=== PATIENT | male | born 1990 | race Caucasian/White ===

== ENCOUNTER 2018-03-18 21:06 | Emergency (ER) | payer BC ==
[~2018-03-18] VITALS: Ht 157.5 cm; Wt 59.0 kg
[~2018-03-18 21:06] MED LIST: ACET325T12 PO; DAPA5TAB PO; EMPA25TA PO; INSU100C5 SQ; INSU100V13 SQ; INSU100V14 SQ; INSU100V8 SQ; INSU300I SQ; LANC-426 MC; LISI10TA2 PO; ONDA4TAB12 PO; SIMV20TA3 PO; VARE1TAB21 PO; [UNRECOGNIZED DRUG - CODE] TP; [UNRECOGNIZED DRUG - OTHER]; [UNRECOGNIZED DRUG - OTHER] SUBCUT
[2018-03-18] MEDS ORDERED: NAPROXEN PO STA (21:16)
[2018-03-18] MEDS ORDERED: AMOXIL PO STA (21:16)
[2018-03-18] MEDS ORDERED: AMOXIL PO ONE (21:18)
[2018-03-18] MEDS ORDERED: NAPROXEN PO ONE (21:18)
--- NOTE | 2018-03-18 21:21 | ER.PDOC ---
General Chief Complaint: Toothache Stated Complaint: TOOTHACHE Time seen by MD: 21:18 Source: patient Exam Limitations: no limitations History of Present Illness Initial Comments 28 year old white male with chronic fractured tooth with increasing pain tonight. No fever, no chills. Timing/Duration: gradual Context: fractured tooth Severity: severe Worsen By: cold Prior symptoms/Treatment: Similar symptoms previous Allergies: Coded Allergies: No Known Allergies (Unverified , 06/03/16) Home Meds Active Scripts Lancets (ACCU-CHEK) 1 Each Each, 1 EACH MC ACHS for Monitor Blood Sugar, #120 EACH Prov:FADI DURBIN MD 11/30/15 Insulin Aspart (NOVOLOG) 100 Unit/1 Ml Vial, 0 UNIT SQ ACHS for Short acting insulin for BS, #10 VIAL 3 Refills Prov:FADI DURBIN MD 11/30/15 Reported Medications Empagliflozin (Jardiance) 25 Mg Tablet, 25 MG PO DAILY, TABLET 06/03/16 Insulin Glargine,Hum.rec.anlog (Toujeo Solostar) 300 Unit/1 Ml Insuln.pen, 35 UNIT SQ ACB 06/03/16 Simvastatin (SIMVASTATIN) 20 Mg Tablet, 20 MG PO HS, TABLET 10/03/14 Lisinopril (LISINOPRIL) 10 Mg Tablet, 10 MG PO DAILY, TABLET 10/03/14 Past Medical History Medical History: diabetes, hypertension Surgical History: no surgical history, other Social History Smoking: cigarettes, less than 1 pack/day Alcohol Use: none Drug Use: none Constitutional: no symptoms reported Eyes: no symptoms reported Ears: no symptoms reported Nose: no symptoms reported Mouth: see HPI Throat: no symptoms reported Respiratory: no symptoms reported Cardiovascular: no symptoms reported Gastrointestinal: no symptoms reported Musculoskeletal: no symptoms reported Skin: no symptoms reported Neurological: no symptoms reported Hematologic/Lymphatic: no symptoms reported Immunological/Allergic: no symptoms reported Physical Exam General Appearance: alert, no distress Head/Neck: head nml inspection, neck nml inspection, trachea midline, no lymphadenopathy, thyroid nml Eyes: eyes nml inspection, PERRL, no nystagmus Mouth: dental tenderness, widespread dental decay Throat: pharynx nml, voice nml, no airway problems Ears/Nose: nml inspection Respiratory: no resp. distress, lungs clear CVS: reg. rate & rhythm, heart sounds nml Abdomen: non-tender, no organomegaly Extremities: non-tender, ROM nml Skin Exam: Normal Color, Warm/Dry NEURO/PSYCH: oriented X3, mood/effect nml Comments BP results noted. With PCP follow up in less than a week. Advised to take medications regularly Departure Time of Disposition: 21:20 Disposition: 01 HOME, SELF-CARE Impression: Primary Impression: Periodontal abscess Condition: Stable Referrals: FADI DURBIN MD (PCP) PRIMARY CARE PROVIDER Additional Instructions: Follow up dentist/PCP RTER prn Amoxicillin/Naproxen Duration or Time Spent with Pa: 10 SIERRA BAINS MD Mar 18, 2018 21:21
[2018-03-18 21:33] VITALS: BP 167/87
== END 2018-03-18 21:30 | disposition home or self-care (01) ==
LOC: ER 21:06
DX: K05.219 Aggressive periodontitis, localized, unspecified severity (principal); F17.210 Nicotine dependence, cigarettes, uncomplicated; E11.9 Type 2 diabetes mellitus without complications; I10 Essential (primary) hypertension; Z79.4 Long term (current) use of insulin; Z79.899 Other long term (current) drug therapy
CPT/HCPCS: 99283

== ENCOUNTER 2018-06-30 00:23 | Inpatient (IN) | payer BC ==
[~2018-06-30] VITALS: Ht 160 cm; Wt 67.3 kg
[2018-06-30 00:36] VITALS: BP 149/95
--- NOTE | 2018-06-30 00:40 | NUR ---
ARRIVAL PT ARRIVED AMBULATORY TO ER 3 WITH C/O VOMITING. PT STATES HE HAS BEEN VOMITING OFF AND ON ALL DAY, WITH THE LAST OCCURRENCE 10 MINUTES INTERVENTIONAL PHYSIATRIST. PT STATES HE IS NOT CURRENTLY NAUSEATED. PT IS TYPE I DIABETIC. PT IN NO ACUTE DISTRESS AT THIS TIME. EDP NOTIFIED OF ARRIVAL.
[2018-06-30] MEDS ORDERED: NS 1000ML 1,000 ML IV STA ×2 (00:47→03:14)
[2018-06-30] MEDS ORDERED: ZOFRAN IV STA (00:47)
[2018-06-30] MEDS ORDERED: NS 1000ML 1,000 ML ONE ×2 (00:50→03:20)
[2018-06-30] MEDS ORDERED: ZOFRAN ONE (00:50)
--- NOTE | 2018-06-30 00:50 | ER.PDOC ---
General Chief Complaint: Nausea,Vomiting,Diarrhea Stated Complaint: VOMITING Time seen by MD: 00:49 Source: patient Exam Limitations: no limitations History of Present Illness Initial Comments Nausea/vomiting since yesterday. Severity/Quality: moderate Associated Symptoms (vomiting): freq vomitng Allergies: Coded Allergies: No Known Allergies (Unverified , 06/03/16) Home Meds Active Scripts Lancets (ACCU-CHEK) 1 Each Each, 1 EACH MC ACHS for Monitor Blood Sugar, #120 EACH Prov:FADI DURBIN MD 11/30/15 Insulin Aspart (NOVOLOG) 100 Unit/1 Ml Vial, 0 UNIT SQ ACHS for Short acting insulin for BS, #10 VIAL 3 Refills Prov:FADI DURBIN MD 11/30/15 Reported Medications Empagliflozin (Jardiance) 25 Mg Tablet, 25 MG PO DAILY, TABLET 06/03/16 Insulin Glargine,Hum.rec.anlog (Toujeo Solostar) 300 Unit/1 Ml Insuln.pen, 35 UNIT SQ ACB 06/03/16 Simvastatin (SIMVASTATIN) 20 Mg Tablet, 20 MG PO HS, TABLET 10/03/14 Lisinopril (LISINOPRIL) 10 Mg Tablet, 10 MG PO DAILY, TABLET 10/03/14 Vital Signs First Vital Signs Date Time Temp Pulse Resp B/P (MAP) Pulse Ox O2 Delivery O2 Flow Rate FiO2 06/30/18 00:32 99.5 129 16 99.5 06/30/18 00:32 94 Room Air 06/30/18 00:36 149/95 (113) Last Vital Signs Date Time Temp Pulse Resp B/P (MAP) Pulse Ox O2 Delivery O2 Flow Rate FiO2 06/30/18 00:36 99.5 129 16 149/95 (113) 94 Room Air 99.5 Past Medical History Medical History: diabetes Surgical History: appendectomy, other Social History Smoking: cigarettes, less than 1 pack/day Alcohol Use: none Drug Use: none Constitutional: no symptoms reported EENTM: no symptoms reported Respiratory: no symptoms reported Cardiovascular: no symptoms reported Gastrointestinal: see HPI Genitourinary: no symptoms reported All Other Systems: Reviewed and Negative Physical Exam General Appearance: No Apparent Distress, WD/WN Neck: Non-Tender, Full Range of Motion, Supple, Normal Inspection Respiratory: chest non-tender, lungs clear, normal breath sounds, no respiratory distress, no accessory muscle use Cardiovascular: Normal Peripheral Pulses, Regular Rate, Rhythm, No Edema, No Gallop, No JVD, No Murmur, Tachycardia Gastrointestinal: Normal Bowel Sounds, Non Tender, Soft Back: Normal Inspection, No CVA Tenderness, No Vertebral Tenderness Extremities: Normal Range of Motion, Non-Tender, Normal Inspection, No Pedal Edema, No Calf Tenderness, Normal Capillary Refill, Pelvis Stable Neurologic/Psychiatric: manager studio II-XII NML as Tested, No Motor/Sensory Deficits, Alert, Normal Mood/Affect, Oriented x 3 Skin: Normal Color, Warm/Dry Lymphatic: No Adenopathy Results/Orders Results/Orders Laboratory Tests Test 06/30/18 00:00 06/30/18 01:08 06/30/18 01:17 06/30/18 02:00 Urine Collection Type UNKNOWN Urine Color YELLOW (YELLOW) Urine Appearance CLEAR (CLEAR) Urine Bilirubin NEGATIVE MG/DL (NEGATIVE) Urine Ketones 50 mg/dL (NEGATIVE) Urine Specific [place] 1.020 (1.005-1.035) Urine pH 6 (5.0-6.0) Urine Protein 500 mg/dL (NEGATIVE) Urine Urobilinogen NORMAL (NEGATIVE) Urine Nitrate NEGATIVE (NEGATAIVE) Urine Leukocyte Esterase NEGATIVE (NEGATIVE) Urine Blood 50 2+ (NEGATIVE) Urine RBC 5-10 RBC/HPF (NONE SEEN) Urine WBC 2-5 WBC/HPF (0-2) Urine Squamous Epithelial Cells RARE #/HPF (FEW) Urine Bacteria NONE SEEN (NONE SEEN) Urine Hyaline Casts 2-5 (NONE SEEN) Urine Fine Granular Casts 0-1 Urine Other 3+ MUCUS #/HPF Urine Glucose 500 (NEGATIVE) White Blood Count 19.0 10^3/uL (4.5-11.0) Red Blood Count 4.48 10^6/uL (4.50-5.90) Hemoglobin 13.2 g/dL (13.9-16.3) Hematocrit 39.8 % (37.0-53.0) Mean Corpuscular Volume 88.8 fL (78-100) Mean Corpuscular Hemoglobin 29.5 pg (26-34) Mean Corpuscular Hemoglobin Concent 33.2 g/dL (33-37) Red Cell Distribution Width 13.8 % (11.5-14.5) Platelet Count 399 10^3/uL (150-400) Mean Platelet Volume 9.5 fL (7.8-11.0) Neutrophils (%) (Auto) 86.8 % (41.0-85.0) Lymphocytes (%) (Auto) 5.8 % (24.0-44.0) Monocytes (%) (Auto) 6.8 % (5.0-12.0) Neutrophils # (Auto) 16.5 10^3/uL (1.8-7.7) Lymphocytes # (Auto) 1.1 10^3/uL (1.0-4.8) Monocytes # (Auto) 1.3 10^3/uL (0.3-0.8) Absolute Immature Granulocyte (auto 0.06 10^3 u/L (0-2) Eosinophils % 0.1 % (0.0-5.0) Basophils % 0.2 % (0.0-0.2) Basophils # 0.0 10^3/uL (0.0-0.1) Eosinophil Count 0.0 10^3/uL (0.0-0.2) Sodium Level 137 mmol/L (132-145) Potassium Level 4.3 mmol/L (3.6-5.2) Chloride Level 99.0 mmol/L (96-109) Carbon Dioxide Level 26.3 mmol/L (20.0-32) Anion Gap 16.0 Blood Urea Nitrogen 23 mg/dL (7-18) Creatinine 1.58 mg/dL (0.59-1.40) Estimated GFR () 63.1 (>/=60) BUN/Creatinine Ratio 14.0 Glucose Level 284 mg/dL (70-110) Calcium Level 9.1 mg/dL (8.4-10.5) Total Bilirubin 0.4 mg/dL (0.2-1.0) Aspartate Amino Transf (AST/SGOT) 23 U/L (0-35) Alanine Aminotransferase (ALT/SGPT) 23 U/L (12-78) Alkaline Phosphatase 156 U/L (50-136) Total Protein 7.6 g/dL (6.4-8.2) Albumin 3.1 g/dL (3.4-5.0) Globulin 4.5 Lipase 110 U/L (114-286) Percent Immature Gran (Cell Imm) 0.30 % (0.00-0.50) Differential Total Cells Counted 100 #CELLS Segmented Neutrophils 86 % (31-76) Band Neutrophils 1 % (2-6) Lymphocytes 6 % (25-36) Monocytes 7 % (3-9) Platelet Estimate ADEQUATE Platelet Morphology NORMAL Blood Morphology Comment NORMAL MORPHOLOGY Blood Gas Sample Site LEFT RADIAL ARTERY Blood Gas pH 7.419 (7.350-7.450) Blood Gas PCO2 34.1 mmHg (35.0-45.0) Blood Gas PO2 59.3 mmHg (75.0-100.0) Blood Gas HCO3 21.6 mmol/L (22.0-26.0) Blood Gas Base Excess -2.2 mmol/L (-2.0-2.0) Chu Test POSITIVE Arterial Blood Oxygen Saturation 91.2 % (95-) Deoxyhemoglobin 8.7 % (0.2-0.6) Carboxyhemoglobin 1.1 % (0.5-1.5) Methemoglobin 0.5 % (0.2-0.6) Total Hemoglobin 13.2 % (13.5-17.5) Total Oxygen Concentration 16.6 % (13.5-17.5) Lactic Acid (Blood Gas) 1.3 MMOL/L (0.5-1.0) Blood Gas Temperature 37.0 Oxygen Delivery Method (LAB) RA FiO2 21.0 % (20-101) Bicarbonate 22.6 mmol/L (23-27) Administered Medications Medications (Trade) Dose Ordered Sig/Ana Route PRN Reason Start Time Stop Time Status Last Admin Dose Admin Sodium Chloride 1,000 ml @ 1,200 mls/hr Q50M STAT IV 06/30/18 00:47 06/30/18 01:36 DC 06/30/18 01:28 Ondansetron HCl (Zofran) 4 mg STAT STAT IV 06/30/18 00:47 06/30/18 00:50 DC 06/30/18 01:28 EKG/XRAY/CT/US CT Comments: Nothing acute on CT abdomen/pelvis Departure Time of Disposition: 03:11 Disposition: 09 ADMITTED INPATIENT Impression: Primary Impression: Nausea & vomiting Qualified Codes: R11.2 - Nausea with vomiting, unspecified Additional Impressions: Acute kidney failure Qualified Codes: N17.9 - Acute kidney failure, unspecified Hyperglycemia Dehydration Condition: Stable Referrals: FADI DURBIN MD (PCP) PRIMARY CARE PROVIDER Comments Admitted to Dr. Jaramillo Duration or Time Spent with Pa: 90 mins DANGELO ASRABIA MD Jun 30, 2018 00:50
[2018-06-30 01:01] LABS: BILIRUBIN,URINE NEGATIVE (NEGATIVE); UROBILINOGEN,URINE NORMAL (NEGATIVE)
[2018-06-30 01:12] LABS: BASOPHIL % 0.2 % (0.0-0.2); EOSINOPHIL % 0.1 % (0.0-5.0); HEMOGLOBIN 13.2 g/dL (13.9-16.3); LYMPHOCYTES # 1.1 10^3/uL (1.0-4.8); LYMPHOCYTES % 5.8 % (24.0-44.0); MEAN CELL HGB 29.5 pg (26-34); MEAN CELL HGB CONCENTRATION 33.2 g/dL (33-37); MEAN CORP VOLUME 88.8 fL (78-100); MEAN PLATELET VOLUME 9.5 fL (7.8-11.0); MONOCYTES # 1.3 10^3/uL (0.3-0.8); MONOCYTES % 6.8 % (5.0-12.0); NEUTROPHIL # 16.5 10^3/uL (1.8-7.7); NEUTROPHILS % 86.8 % (41.0-85.0); RED CELL DISTRIBUTION WIDTH 13.8 % (11.5-14.5)
[2018-06-30 01:14] LABS: APPEARANCE,URINE CLEAR (CLEAR); UA COLOR YELLOW (YELLOW)
[2018-06-30 01:31] LABS: CALCIUM 9.1 mg/dL (8.4-10.5); CARBON DIOXIDE 26.3 mmol/L (20.0-32)
--- NOTE | 2018-06-30 01:33 | DIREP ---
PROCEDURE:XR ABDOMEN 2 VIEWS COMPARISON:None. INDICATIONS:Nausea/vomiting TECHNIQUE:Flat and upright views of the abdomen are provided. FINDINGS: BOWEL GAS PATTERN:Normal. CALCIFICATIONS:None significant. LUNG BASES:Clear. BONES:Normal. OTHER:Surgical clips in the right upper quadrant of the abdomen. CONCLUSION:No acute abnormalities. Dictated by: Aime Dhaliwal M.D. on 06/30/2018 at 01:29 AM
[2018-06-30 01:42] LABS: BAND NEUTROPHILS 1 % (2-6); LYMPHOCYTE 6 % (25-36); MONOCYTE 7 % (3-9); SEGMENTED NEUTROPHILS 86 % (31-76)
--- NOTE | 2018-06-30 01:46 | NUR ---
CT PT TO CT AT THIS TIME.
--- NOTE | 2018-06-30 02:10 | DIREP ---
PROCEDURE:CT ABD/PELVIS WITHOUT CONTRAST TECHNIQUE:Axial cuts were obtained from the dome of the diaphragm to the ischial tuberosities. No intravenous contrast was given. The images were viewed at lung and soft tissue settings. Sagittal and coronal reconstructions are provided. COMPARISON:[facility], CT, CT ABD/PELVIS W/ CONTRAST, 03/05/2016, 06:19 PM. INDICATIONS:abdominal pain and vomiting FINDINGS: LOWER CHEST:The lung bases are clear. LIVER:Normal. BILIARY:Previous cholecystectomy. PANCREAS:Normal. SPLEEN:Calcified granulomas in the spleen. URINARY TRACT:Normal. ADRENALS:Normal. AORTA/VASCULAR:Normal. RETROPERITONEUM:Normal. BOWEL/MESENTERY:Normal. The appendix is identified series [id number] images 35-39 and is normal. ABDOMINAL WALL:Normal. PELVIS:Normal. 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 OTHER:Normal. CONCLUSION: 1. No acute abnormalities. 2. Previous cholecystectomy. Dictated by: Aime Dhaliwal M.D. on 06/30/2018 at 02:02 AM
[2018-06-30 02:12] LABS: ABG PCO2 34.1 mmHg (35.0-45.0); ABG PH 7.419 (7.350-7.450); BE(B) -2.2 mmol/L (-2.0-2.0); HCO3act 21.6 mmol/L (22.0-26.0); pO2 59.3 mmHg (75.0-100.0)
--- NOTE | 2018-06-30 03:14 | PRM.ACF1 ---
Date and Time Date and Time Time: :14 Admission Criteria Forms DEHYDRATION Clinical Indications for Admission to Inpatient Care ([place]/check or initial the applicable condition/criteria) Admission is indicated for 1or more of the following (1)(2)(3) [ ]I. Serious cause for dehydration requiring acute hospitalization(e.g., bowel obstruction, increased intracranial pressure, infectious cause) [ ]II. Inpatient admission required [A] rather than observation care (see Dehydration:Observation Care guideline as appropriate)because of ANY ONE of the following (4)(5) [ ]a) Vomiting that is severe or persistent indicated by 1 or more of the following(1)(2)(3)(4)(5)(6)(7)(8): [ ]i. Numerous episodes of vomiting in past 24 hours (eg, every 1 to 2 hours) [ ]ii. Pattern or content of vomitus suggests severe underlying cause or complication (eg,projectile, feculent, bilious, coffee ground, bloody) [ ]iii. Appropriate antiemetic treatment (eg,repeated oral or parenteral dosing) doesnot sufficiently reduce vomiting within 12 to 24 hours of treatment [ ]iv. Treatment regimen necessary to adequately control vomiting requires inpatient level of care(eg, not immediately available in outpatient setting) [ ]b. Dehydration that is severe or persistent as indicated by 1 or more of the following(1)(2)(3)(4): [ ]i. Clinical findings of severe dehydration as indicated by 1 or more of the following: [ ]1. Acute loss of weight from baseline (5% of body weight in adults, 9% in pediatric patients) [ ]2. Hemodynamic instability indicated by 1 or more of the following(1)(2)(3)(4)(5)(6)(7): [ ]a. Vital sign abnormality not readily corrected by appropriate treatment within 12 to 24 hours indicated by 1 or more of the following: [ ]i. Tachycardia as indicated by 1 or more of the following(1)(2): [ x]1. Heart rate greater than 100 beats per minute in adult or child age 6 years or older [ ]2. Heart rate greater than 115 beats per minute in child 3 to 5 years of age [ ]3. Heart rate greater than 125 beats per minute in child 1 or 2 years of age [ ]4. Heart rate greater than 130 beats per minute in 6 to 11 months of age [ ]5. Heart rate greater than 150 beats per minute in infant 3 to 5 months of age [ ]6. Heart rate greater than 160 beats per minute in 1 or 2 months of age [ ]ii. Hypotension as indicated by ALL of the following (1)(2)(3)(4): [ ]A. Not patient baseline (eg, healthy adult with low SBP ) or intentional therapeutic goal (eg, low SBP as treatment goal in heart failure) [ ]B. Low blood pressure as indicated by 1 or more of the following: [ ]1. New onset of SBP less than 90 mm Hg in adult or child 10 years or older [ ]2. New decrease in SBP greater than 40 mm Hg in adult or child 10 years or older [ ]3. Mean arterial pressure[A] less than 70 mm Hg in adult or child 10 years or older [ ]4. New onset of SBP less than sum of 70 mm Hg plus twice patient' s age in years in child 1 to 9 years of age [ ]5.New onset of SBP less than 70 mm Hg in 1 to 11 months of age [ ]iii. Orthostatic vital sign changes as indicated by 1 or more of the following (1): [ ]A. Fall in SBP of 20 mm Hg or more 1 to 3 minutes after patient sits or stands from recumbent position [ ]B. Fall in DBP of 10 mm Hg or more 1 to 3 minutes after patient sits or stands from recumbent position [ ]b. Vital sign abnormality that is severe indicated by 1 or more of the following: [ ]i. inadequate perfusion indicated by 1 or more of the following [ ]A. Lactic acidosis, with lactic acid greater than 18 mg/ dL (2 mmol/L) or base excess < -5mEq/L [ ]B. New abnormal capillary refill (longer than 3 seconds) [ ]C. Other metabolic acidosis (arterial pH < 7.35)not otherwise explanied [ ]D. Myocardial ischemia [ ]E. Altered mental status indicated by 1 or more of the following(1)(2)(3)(4): [ ]1. Confusional state (eg,disorientation,difficultyfollowing commands,deficit in attention) [ ]2. Lethargy (awake or arousable,but with drowsiness;reduced awareness of self and environment) [ ]3. Obtundation(ie,arousable with strong stimuli,lessened interestin environment, slowed responses to stimulation) [ ]4. Stupor (may be arousable but patient does not return to normal baseline level of awareness) [ ]5. Coma (not arousable) [ ]F. Reduced urine output as indicated by 1 or more of the following(1)(2): [ ]1. Urine output less than 0.5 mL/kg/hour for 6 hours in adult [ ]2. Anuria (urine output less than 0.1 mL/kg/hour) for 4 hours in any age group [ ]3. Reduced output in child as indicated by 1 or more of the following (3): [ ]i. Urine output less than 2 mL/kg/hour for 6 hours in infant younger than 2 years [ ]ii. Urine output less than 1 mL/kg/hour for 6 hours in child younger than 12 years [ ]iii. Urine output less than 0.75 mL/kg/h [ ]ii. Mean arterial pressure[A] less than 60 mm Hg [ ]iii. Mean arterial pressure[A] less than 70 mm Hg after 30 minutes of appropriate treatment (eg, fluid resuscitation) [ ]iv. IV inotropic or vasopressor medication required to maintain adequate blood pressure [ ]v. Sustained heart rate greater than 120 beats per minute in adult or child 6 years or older [ ]3. Acute renal failure as indicated by new onset of 1 or more of the following(1)(2)(3)(4)(5)(6)(7): [ ]a. 3-fold rise in serum creatinine from baseline [ ]b. Serum creatinine greater than 4 mg/dL(354 micromoles/L)with acute rise greater than 0.5 mg/dL (44.2 micromoles/L) [ ]c. Reduction of more than 75% in estimated glomerular filtration rate from baseline. [ ]d. Estimated glomerular filtration rate less than 35 mL/min/1.73m2 (0.59 mL/sec/1.73m2) in child younger than 18 years. [ ]e. Cessation of urine output indicated by ALL of the following: [ ]A. Adequate volume status [ ]B. Inadequate urine output as indicated by 1 or more of the following: [ ]i. Urine output less than 0.3 mL/kg/hour for 24 hours [ ]ii. Anuria (urine output less than 0.1 mL/kg/hour) for 12 hours [ ]4. Serum sodium greater than 150 mEq/L (mmol/L) [ ]ii. Dehydration that is persistent as indicated by ALL of the following: [ ]1. Oral rehydration therapy not tolerated or insufficient to adequately correct dehydration [ ]2. Appropriate intravenous treatment (eg, fluids) does not readily correct dehydration (ie, after 12 to 24 hours of treatment) [ ]c. IV fluid required rather than oral rehydration to replace significant ongoing (eg, for greater than 24 hours) losses (greater than 3 L/m2 per day) (6) [ ]d. Parenteral nutrition regimen that must be implemented on inpatient basis [ ]e. Other condition, treatment, or monitoring requiring inpatient admission Extended stay beyond goal length of stay may be needed for (1)(2)(3)(9) [ ]I. Chronic severe dehydration [ ]a. Chronic severe dehydration may result in severe hyperosmolar stateor hypovolemic electrolyte imbalance (serum sodium less than 120 mEq/L (mmol/L) or greater than 150 mEq/L (mmol/L)) requiring correction over 2 to 3 days,with monitoring of mental status.(10) [ ]II. Persistent vital sign changes, severe electrolyte imbalance, or diagnosed cause of dehydration that requires continued hospitalization (e.g., bowel obstruction, colitis) [ ]a. Anticipate continued support, treatment, and investigation of underlying illness [ ]III. Severe comorbid illness (e.g., renal failure, heart failure, poorly controlled diabetes) [ ]a. Anticipate investigations and treatment of comorbid illness. [ ]IV. Older patients [ ]a. Patient 75 years or older may require longer acute hospital care. The original [employer] content created by [employer] has been revised. The portions of the content which have been revised are identified through the use of italic text, and [employer] has neither reviewed nor approved the modified material. All other unmodified content is copyright [employer]. Please see references footnoted in the original [employer] edition 2014 DANGELO SARABIA MD Jun 30, 2018 03:14
[2018-06-30] MEDS ORDERED: ZOFRAN IV PRN ×2 (03:30→08:00)
[2018-06-30] MEDS ORDERED: TYLENOL PO ONE (04:45)
--- NOTE | 2018-06-30 04:49 | NUR ---
TRANSFER PATIENT TRANSFERED TO [facility] VIA W/C.
--- NOTE | 2018-06-30 04:49 | NUR ---
REPORT CALLED AND GIVEN TO ALEX MCGEE AT THIS TIME.
[2018-06-30 05:42] VITALS: BP 139/87
--- NOTE | 2018-06-30 05:52 | NUR ---
pt vomited 150cc fluid drk redish brown in color with slight grains in it, pt reports that has been that color just last couple of times.
--- NOTE | 2018-06-30 07:05 | NUR ---
REPORT RECEIVED REPORT FROM ALEX GLASGOW. ASSUMED CARE FOR PATIENT AT THIS TIME.
[2018-06-30] MEDS ORDERED: PROTONIX IV IV STA (07:23)
[2018-06-30] MEDS: NS 1000ML 1,000 ML IV SCH ×2 (07:30→14:03)
[2018-06-30] MEDS ORDERED: HUMULIN R IV ONE (08:00)
[2018-06-30] MEDS ORDERED: PHENERGAN IV PRN (08:00)
[2018-06-30 08:10] VITALS: BP 138/87
--- NOTE | 2018-06-30 09:43 | DIREP ---
PROCEDURE:CHEST 2 VIEWS COMPARISON:None. INDICATIONS:cough,fever FINDINGS: LUNGS/PLEURA:No significant pulmonary parenchymal abnormalities. No effusions. VASCULATURE:Normal. Unremarkable pulmonary vasculature. CARDIAC:Normal. No cardiac silhouette abnormality or cardiomegaly. MEDIASTINUM:Normal. No visible mass or adenopathy. BONES:Normal. No fracture or visible bony lesion. OTHER:There are surgical clips present in the right upper quadrant compatible with prior cholecystectomy. CONCLUSION:Essentially normal examination. Please see above for incidental and/or clinically insignificant findings. Dictated by: Jose Guadalupe Matias M.D. on 06/30/2018 at 09:41 AM
--- NOTE | 2018-06-30 09:55 | HPH ---
ADMIT DATE: 06/30/2018 CHIEF COMPLAINT: Nausea, vomiting. HISTORY OF PRESENT ILLNESS: The patient is a pleasant 28-year-old male with juvenile onset diabetes mellitus type 1 since age 4. He has been in his usual state of health until about the past 3-4 days. Over the past 1-2 weeks, he has been having some idiopathic mild headaches. He has been taking ibuprofen about every other day for these headaches. Over the past 3 days, he has developed nausea, vomiting, coughing and occasional production of blackish sputum or emesis. The nausea and vomiting became intractable and he came to the Emergency Room. He denies any chills, but he has been running fevers of around 99-100. He denies any melena. He denies abdominal pain. His evaluation in the ER is notable for marked leukocytosis, low grade fever, no significant abnormalities on abdominopelvic CT scan. Also, his BUN and creatinine are up a little compared to his baseline. His creatinine was 1.2 back in January and is 1.58 at this point. PAST MEDICAL HISTORY: Type 1 diabetes mellitus. PAST SURGICAL HISTORY: Cholecystectomy. ALLERGIES: NKDA. CURRENT MEDICATIONS: Lantus insulin, NovoLog, ibuprofen. SOCIAL HISTORY: The patient smokes approximately one-half pack per day cigarettes daily. ETOH negative. His or girlfriend is here with him. FAMILY HISTORY: Negative for close relatives with CAD. REVIEW OF SYSTEMS: PULMONARY: No pleuritic chest pain. GENITOURINARY: No dysuria. NEUROLOGIC: Occasional mild acral paresthesias. A 10-point ROS reviewed and otherwise negative. PHYSICAL EXAMINATION: VITAL SIGNS: Temperature 99, pulse 129, respirations 18, BP 138/87, pulse ox 91% on room air. GENERAL: Andre young male, in NAD. HEENT: PERRLA, EOMI, sclerae nonicteric, conjunctivae pink, pharynx clear except dry mucous membranes. NECK: Without JVD, thyromegaly, or adenopathy. LUNGS: Diminished breath sounds at the bases, questionable rales at the right base. CARDIOVASCULAR: Tachycardic, S1, S2, without significant murmur. ABDOMEN: Without hepatosplenomegaly or masses, soft, bowel sounds present, but reduced. Nontender. EXTREMITIES: Without C, C or E. Pulses 1+/1 plus in feet. NEUROLOGIC: Alert. Cranial nerves intact. Motor 4/5. LABORATORY DATA: WBC 19.0 with left shift, hemoglobin 13.2, platelet 399. CMP notable for BUN 23, creatinine 1.58, glucose 284, alkaline phosphatase 156. Albumin 3.1, lipase 110. UA is notable for positive protein, blood, trace ketones on dipstick, 2-5 wbc's, no bacteria seen. ABG: pH 7.419, pCO2 of 34.1, pO2 of 59.3, lactic acid 1.3. IMPRESSION AND PLAN: 1. Intractable vomiting with blood tensed emesis; suspect the patient has acute gastritis or small gastric ulcer in the context of recently taking ibuprofen for headaches and probable underlying gastroparesis to 1 degree or another. I will start IV Protonix and recheck CBC daily. I do not believe endoscopy is indicated unless the situation changes. 2. Septic syndrome, which appears to fall short of full blown sepsis with normal serum lactate. Patient is mildly hypoxic. I think it is possible he aspirated from the vomiting episodes. We will get blood and urine cultures and start Zosyn. He will get vigorous IV fluids. 3. Type 1 diabetes mellitus, we will monitor for now q.4 hours with sliding and provide sliding scale insulin coverage, but the patient is n.p.o., so no long-acting insulin as of yet. 4. Acute kidney injury superimposed on chronic kidney disease, we will trend, this should improve with hydration. 5. Prophylaxis, ambulation and Protonix. 55 minutes spent. Vineet Gregg MD DR: ALANA/latisha JOB# [id number] CC: Florian Hutchison MD
[2018-06-30] MEDS: PROTONIX IV IV SCH ×2 (09:58→20:18)
--- NOTE | 2018-06-30 10:45 | NUR ---
DISCHARGE PLAN CM VISITED WITH PATIENT CONCERNING HIS DISCHARGE PLAN AND NEED. PATIENT STATED HE LIVES @ HOME WITH HIS GIRLFRIEND AND HE IS VERY INDEPENDENT ON ADLS. HE STATED HE IS NOT CURRENTLY WORKING, BUT HIS PARENTS MAKE SURE HE HAS ADEQUATE HEALTH INSURANCE AND THAT HE HAS ALL OF HIS DIABETIC SUPPLIES. PATIENT DENIES NEEDING ADDITIONAL RESOURCES @ THIS TIME WITH CONTACT INFORMATION PROVIDED. CURRENT GOAL FOR PATIENT IS TO DISCHARGE BACK HOME TO ROUTINE CARE. NO FURTHER CM OR DISCHARGE NEEDS KNOWN @ THIS TIME.
--- NOTE | 2018-06-30 11:12 | NUR ---
PATIENT WAS PLACED ON 2LNC AT THIS TIME TO KEEP OXYGEN SATURATION GREATER THAN 90%. WAS NOTIFIED OF THIS AT THIS TIME ALONG WITH THE PATIENTS PULSE VALUE OF 128. RECEIVED ORDERS FOR NS BOLUS X1. WILL CONTINUE TO MONITOR PATIENT.
[2018-06-30] MEDS: NS IV SCH (12:00)
[2018-06-30] MEDS: VANCOMYCIN IV SCH (12:00)
[2018-06-30] MEDS ORDERED: NS 1000ML 1,000 ML IV ONE (12:00)
[2018-06-30 13:03] VITALS: BP 128/78
[2018-06-30 13:09] LABS: ABG PCO2 35.5 mmHg (35.0-45.0); ABG PH 7.354 (7.350-7.450); BE(B) -5.5 mmol/L (-2.0-2.0); HCO3act 19.3 mmol/L (22.0-26.0); pO2 73.4 mmHg (75.0-100.0)
[2018-06-30] MEDS: ZOSYN 3.375 GRAM VIAL 3.375 GM in NS 100ML 100 ML IV SCH ×2 (16:00→23:32)
--- NOTE | 2018-06-30 16:12 | DIREP ---
PROCEDURE:CT CHEST W/O COMPARISON:[facility], CT, CT ABD/PELVIS W/O, 06/30/2018, 01:30 AM. [facility], CR, XRAY CHEST 2 VWS, 06/30/2018, 09:22 AM. INDICATIONS:fever, hypoxia TECHNIQUE:Helical CT images of the chest were obtained without IV contrast material. Axial, sagittal, and coronal images are provided. FINDINGS: LUNGS/PLEURA: Small focus of centrilobular opacities in the posterior left lower lobe (image 45, series 4), consistent with mild infectious or inflammatory pneumonitis. The lungs are otherwise clear. No dense consolidation. No suspicious pulmonary nodule. No pleural effusion or pneumothorax. MEDIASTINUM/CHATO: Somewhat limited evaluation secondary to lack of IV contrast. No bulky mediastinal or hilar adenopathy. CARDIAC: Heart size is normal. No pericardial effusion. THORACIC AORTA: Normal. No aneurysm. CHEST WALL: Unremarkable. No axillary adenopathy. LIMITED ABDOMEN: Unremarkable. BONES: Mild, left convexity, upper thoracic curvature, which may be positional. No acute abnormality or suspicious osseous lesion. OTHER: Negative. CONCLUSION: 1. Small focus of centrilobular opacities within the posterior left lower lobe, consistent with mild infectious or inflammatory pneumonitis. The lungs are otherwise clear. 2. Additional findings, as above. Dictated by: Rob Rushing MD on 06/30/2018 at 04:07 PM
[2018-06-30 16:57] VITALS: BP 152/93
--- NOTE | 2018-06-30 18:33 | NUR ---
REPORT REPORT GIVEN TO INO AWAD. RELINQUISHED CARE FOR PATIENT AT THIS TIME.
[2018-06-30] MEDS ORDERED: INSU100I31 SQ (19:28)
[2018-06-30 19:54] VITALS: BP 137/88
--- NOTE | 2018-06-30 19:55 | NUR ---
DR LIDNO NOTIFIED OF PATIENT BLOOD SUGAR 255. PATIENT WITH HOME MEDS OF NOVALOG SS AND TRESIBA THAT ARE NOT CONTINUED. PATIENT VERBALIZING CONCERN. STATED THAT WITH PATIENT VOMITING HE DOES NOT WANT TO CONTINUE THE HOME MEDS BUT THAT HE HAD ORDERED FINGERSTICKS Q 4 HOURS AND SLIDING SCALE INSULIN. MD WAS INFORMED THAT NO ORDER WAS PRESENT FOR SLIDING SCALE OR FINGERSTICKS. MD STATED THAT HE PUT THE ORDERS IN BUT THAT THEY MUST HAVE DROPPED OFF FOR SOME REASON. TO RECEIVED FOR FINGERSTICKS Q 4 HOURS AND A SLIDING SCALE, CMP AND CBC FOR AM AND LR AT 150CC/HR CONTINUOUS. AFTER THE CALL THE ORDERS IN THE COMPUTER WERE AGAIN REVIEWED AND IT WAS DISCOVERED THAT A ONE TIME ORDER FOR THE SLIDING SCALE HAD BEEN PLACED BY THE DR MISTAKENLY. A CALL WAS PLACED AND INFORMED HIM THAT THE YANI AREA OF THE ORDER HAS TO BE CHANGED TO THE FREQUENCY DESIRED. THE MD VERBALIZED UNDERSTANDING THE ORDER WAS REPLACED.
[2018-06-30] MEDS: LACTATED RINGERS 1,000 ML IV SCH (20:00)
[2018-06-30] MEDS: HUMULIN R SUBCUT SCH (20:13)
--- NOTE | 2018-06-30 21:55 | NUR ---
PATIENT C/O DIFFICULTY BREATHING. PATIENT WITH INTERMITTENT CONGESTED SOUNDING COUGH. LUNG SOUNDS CLEAR. PATIENT VERBALIZES HE IS A SMOKER. REPORTS "SOME DIFFICULTY WITH BREATHING IN." REPORTS "SOME PRESSURE IN CHEST". RATES CHEST PRESSURE AT 3. STATES "IT HAS BEEN LIKE THIS SINCE THIS MORNING. IT HASN'T CHANGED." HEART RATE IS BOUNDING. VS BP 136/92, HR 116, 02 SAT 91-92%, RESP 20. NO ACUTE DISTRESS NOTED. PATIENT DENIES ANXIETY. HANDS NOTED TO BE TREMBLING AT TIMES. ENCOURAGED PATIENT TO RELAX. WILL CONTINUE TO MONITOR AND IF CONDITION CHANGES NOTIFY NURSE AND WE WILL NOTIFY MD. PATIENT IN AGREEMENT. STATES "I AM NOT HAVING MUCH TROUBLE RIGHT NOW I WAS."
[2018-07-01] VITALS (7 sets, daily range): BP systolic 124–143; BP diastolic 51–83
[2018-07-01] MEDS: VANCOMYCIN IV SCH ×2 (00:42→12:52)
[2018-07-01] MEDS: NS IV SCH ×2 (00:42→12:52)
[2018-07-01] MEDS: HUMULIN R SUBCUT SCH ×2 (00:55→04:47)
[2018-07-01 05:19] LABS: BASOPHIL % 0.1 % (0.0-0.2); EOSINOPHIL % 0.1 % (0.0-5.0); LYMPHOCYTES # 1.9 10^3/uL (1.0-4.8); LYMPHOCYTES % 10.5 % (24.0-44.0); MEAN CELL HGB 29.4 pg (26-34); MEAN CELL HGB CONCENTRATION 32.9 g/dL (33-37); MEAN CORP VOLUME 89.4 fL (78-100); MEAN PLATELET VOLUME 9.7 fL (7.8-11.0); MONOCYTES # 1.7 10^3/uL (0.3-0.8); MONOCYTES % 9.6 % (5.0-12.0); NEUTROPHIL # 14.3 10^3/uL (1.8-7.7); NEUTROPHILS % 79.4 % (41.0-85.0); RED CELL DISTRIBUTION WIDTH 13.3 % (11.5-14.5); WHITE BLOOD CELL 18.1 10^3/uL (4.5-11.0)
[2018-07-01 06:05] LABS: CALCIUM 8.1 mg/dL (8.4-10.5); CARBON DIOXIDE 22.1 mmol/L (20.0-32)
--- NOTE | 2018-07-01 07:11 | NUR ---
Report Assumed care of patient after report received from Elena MCKINNON. Alert and oriented, Able to make his needs known.
[2018-07-01] MEDS: ZOSYN 3.375 GRAM VIAL 3.375 GM in NS 100ML 100 ML IV SCH ×3 (07:19→21:08)
--- NOTE | 2018-07-01 08:22 | NUR ---
Report Assumed care of patient at shift change after report received from Elena MCKINNON. Awake and alert. MD to bedside talking with patient.
[2018-07-01] MEDS: LACTATED RINGERS 1,000 ML IV SCH ×4 (09:20→21:09)
[2018-07-01] MEDS: PROTONIX IV IV SCH ×2 (09:22→20:51)
[2018-07-01] MEDS: HUMALOG SQ SCH ×3 (12:21→20:49)
--- NOTE | 2018-07-01 14:20 | NUR ---
Bed bath/shower offered, patient stated not at this time and maybe some point later.
--- NOTE | 2018-07-01 16:33 | PNH ---
DATE: SUBJECTIVE: The patient feels better today. He tolerated clear liquids and has had no more blood-tinged emesis. His pulse rate is down somewhat. The lab is reported that one of the 2 blood culture sets is growing gram-positive cocci. He denies any recent skin infections on his feet, etc. CURRENT MEDICATIONS: Ringer's lactate, Zosyn, vancomycin, Humulin R sliding scale, Zofran, Protonix and Phenergan. PHYSICAL EXAMINATION: VITAL SIGNS: Temperature 99.5, pulse rate 88, respirations 18, BP 124/67, pulse ox 97% on room air. NECK: Without JVD, thyromegaly or adenopathy. LUNGS: Diminished breath sounds at bases, otherwise clear. CARDIOVASCULAR: Normal S1, S2. Grade 2/6 systolic ejection murmur heard at the apex with radiation to the left sternal border. ABDOMEN: Without hepatosplenomegaly or masses. Nontender, bowel sounds present. EXTREMITIES: Without C, C or E. LABORATORY DATA: WBC 18.1, still with left shift, hemoglobin 10.0 and platelet 301. CMP notable for BUN 18, creatinine 1.4, calcium 8.1, albumin 2.2. CT scan from yesterday afternoon showed small focus of central lobular opacities within the posterior left lower lobe consistent with mild infectious or inflammatory pneumonitis. IMPRESSION AND PLAN: 1. Septic syndrome, now with reported positive blood cultures for gram-positive cocci, likely not a contaminant. His CT of the chest did show a small infiltrate at the left base. Since there is no source apparent for a staphylococcal bacteremia, we will check an echocardiogram to look for vegetations. We will continue on vancomycin and Zosyn for the present time. 2. Intractable vomiting with blood tinged emesis; this seems to have resolved with IV fluids and IV Protonix. We will not pursue endoscopy. 3. Acute blood loss anemia, not as much as it seems given the changes in his volume status. We will follow. 4. Type 1 diabetes mellitus, on sliding scale coverage, now that he is eating. We will start Lantus and NovoLog. 5. Acute kidney injury, improving as expected with hydration. 6. Prophylaxis, ambulation, Protonix. Thirty-five minutes spent. Vineet Gregg MD DR: ALANA/latisha JOB# [id number]
[2018-07-01] MEDS: LANTUS SQ SCH (20:51)
[2018-07-02] MEDS: VANCOMYCIN IV SCH (00:20)
[2018-07-02] MEDS: NS IV SCH (00:20)
[2018-07-02 00:33] VITALS: BP 148/93
[2018-07-02] MEDS: HUMALOG SQ SCH ×4 (01:00→23:33)
[2018-07-02 04:25] VITALS: BP 138/84
[2018-07-02 05:13] LABS: BASOPHIL % 0.3 % (0.0-0.2); EOSINOPHIL # 0.4 10^3/uL (0.0-0.2); EOSINOPHIL % 3.6 % (0.0-5.0); HEMOGLOBIN 9.6 g/dL (13.9-16.3); LYMPHOCYTES # 2.8 10^3/uL (1.0-4.8); LYMPHOCYTES % 25.3 % (24.0-44.0); MEAN CELL HGB 29.5 pg (26-34); MEAN CELL HGB CONCENTRATION 33.8 g/dL (33-37); MEAN CORP VOLUME 87.4 fL (78-100); MEAN PLATELET VOLUME 9.8 fL (7.8-11.0); MONOCYTES # 0.9 10^3/uL (0.3-0.8); MONOCYTES % 8.4 % (5.0-12.0); NEUTROPHIL # 6.8 10^3/uL (1.8-7.7); NEUTROPHILS % 62.2 % (41.0-85.0); RED CELL DISTRIBUTION WIDTH 12.7 % (11.5-14.5); WHITE BLOOD CELL 10.9 10^3/uL (4.5-11.0)
[2018-07-02] MEDS: LACTATED RINGERS 1,000 ML IV SCH (05:50)
[2018-07-02] MEDS: ZOSYN 3.375 GRAM VIAL 3.375 GM in NS 100ML 100 ML IV SCH (05:51)
[2018-07-02 05:53] LABS: CALCIUM 7.8 mg/dL (8.4-10.5); CARBON DIOXIDE 26.1 mmol/L (20.0-32)
[2018-07-02 07:50] VITALS: BP 118/77
[2018-07-02] MEDS: PROTONIX IV IV SCH (09:56)
[2018-07-02 11:45] VITALS: BP 135/80
--- NOTE | 2018-07-02 11:53 | PNH ---
DATE: SUBJECTIVE: The patient is feeling significantly better. He is not nauseated and wants to advance his diet. His cough is much improved. I got a verbal report from the micro lab that the blood culture was coag negative Staph, 09/22 bottles. PHYSICAL EXAMINATION: VITAL SIGNS: Temperature 98.5, pulse 64, respirations 16, BP 118/77, pulse ox 92% on 2 liters. NECK: Without JVD, thyromegaly or adenopathy. LUNGS: Clear. CARDIOVASCULAR: Regular rate and rhythm. ABDOMEN: Soft, benign. EXTREMITIES: Without C, C or E. LABORATORY DATA: WBC 10.9, hemoglobin 9.6 and platelet 260. BMP notable for potassium 3.1 and phosphorus 2.4. IMPRESSION AND PLAN: 1. Septic syndrome; blood cultures were skin contaminants. I believe this is aspiration pneumonia as a result of a nonspecific gastroenteritis with recurrent nausea and vomiting. We will at this point stop IV antibiotics and start Augmentin to complete an 8-10 day course of antibiotics and also add probiotics. We will advance diet and asked him to ambulate more. He is still borderline hypoxic on nasal cannula oxygen. 2. Hematemesis, probably result of erosive esophagitis from recurrent vomiting; this has abated on IV Protonix. We will change to p.o. Protonix and would complete a 10-14 day course of same. 3. Acute blood loss anemia, fairly minimal, will not require transfusion. 4. Type 1 diabetes mellitus, on Lantus and NovoLog. 5. Acute kidney injury, resolved. 6. Prophylaxis, ambulation, Protonix. Thirty-five minutes spent. Vineet Gregg MD DR: ALANA/latisha JOB# [id number]
[2018-07-02] MEDS ORDERED: VANCOMYCIN HCL 1 GM in NS 250ML 250 ML IV SCH (12:00)
[2018-07-02] MEDS: BACID PO SCH ×2 (12:00→17:45)
[2018-07-02 16:31] VITALS: BP 141/84
--- NOTE | 2018-07-02 18:40 | NUR ---
REPORT RECEIVED FROM INO GONZALEZ.
--- NOTE | 2018-07-02 19:28 | NUR ---
Late entry Report: Report received from ALEX Weiss this morning at shift change. Patient slept most of the day. Stated, "I haven't been resting well." Easily awakened for meds and nursing care.
--- NOTE | 2018-07-02 20:00 | NUR ---
PATIENT AWAKE AND ALERT SITTING UP IN BED. DENIES PAIN OR DISCOMFORT. PATIENT WITH OCC COARSE COUGH. PATIENT IS A SMOKER. PATIENT IS ON ROOM AIR. DENIES S/S HYPO/HYPERGLYCEMIA. SO AT BEDSIDE. NO DISTRESS NOTED. INDEPENDENT IN ROOM. PATIENT CURRENTLY ON ORAL ANTIBIOTICS. PATIENT STATES "I AM HOPING TO GET TO GO HOME TOMORROW." SR UP X2. CALL LIGHT WITHIN REACH.
[2018-07-02 23:18] VITALS: BP 146/84
[2018-07-02] MEDS: AUGMENTIN 875-125 TABLET PO SCH (23:35)
[2018-07-02] MEDS: LANTUS SQ SCH (23:35)
[2018-07-03 05:30] VITALS: BP 159/88
[2018-07-03 05:34] LABS: BASOPHIL % 0.3 % (0.0-0.2); EOSINOPHIL # 0.4 10^3/uL (0.0-0.2); EOSINOPHIL % 4.1 % (0.0-5.0); HEMOGLOBIN 10.1 g/dL (13.9-16.3); LYMPHOCYTES # 3.2 10^3/uL (1.0-4.8); LYMPHOCYTES % 33.7 % (24.0-44.0); MEAN CELL HGB 29.1 pg (26-34); MEAN CORP VOLUME 85.6 fL (78-100); MEAN PLATELET VOLUME 9.7 fL (7.8-11.0); MONOCYTES # 0.8 10^3/uL (0.3-0.8); MONOCYTES % 8.4 % (5.0-12.0); NEUTROPHIL # 5.1 10^3/uL (1.8-7.7); NEUTROPHILS % 53.2 % (41.0-85.0); RED CELL DISTRIBUTION WIDTH 12.4 % (11.5-14.5); WHITE BLOOD CELL 9.5 10^3/uL (4.5-11.0)
[2018-07-03 05:50] LABS: CALCIUM 8.3 mg/dL (8.4-10.5); CARBON DIOXIDE 24.5 mmol/L (20.0-32)
[2018-07-03] MEDS ORDERED: KLOR-CON 10 PO SCH (07:00)
--- NOTE | 2018-07-03 07:00 | NUR ---
BEDSIDE REPORT GIVEN TO INO ERVIN.
[2018-07-03 07:37] VITALS: BP 127/83
[2018-07-03] MEDS: BACID PO SCH (07:37)
[2018-07-03] MEDS: AUGMENTIN 875-125 TABLET PO SCH (08:58)
[2018-07-03] MEDS ORDERED: PROTONIX PO SCH (09:00)
[2018-07-03] MEDS: HUMALOG SQ SCH (09:02)
--- NOTE | 2018-07-03 09:55 | NUR ---
DISCHARGE IV D/C AND TIP INTACT, EDUCATED ON S/S OF DEHYDRATION, ACUTE KIDNEY FAILURE, HYPERGLYCEMIA, PT VERBALIZED UNDERSTANDING, FOLLOW GIVEN TO PT AND NO NEW MEDS PRESCRIBED, TRANSPORTED PT VIA W/C TO [facility] AND BUCKLED IN WITH SIGNIFICANT OTHER AT SIDE.
[2018-07-03 10:03] VITALS: BP 127/83
--- NOTE | 2018-07-03 10:40 | DSH ---
DATE OF DISCHARGE: 07/03/2018 ADMITTING DIAGNOSES: Gastroenteritis with nausea, vomiting, dehydration, and type 1 diabetes mellitus. DISCHARGE DIAGNOSES: Gastroenteritis, resolving with type 1 diabetes mellitus. HOSPITAL COURSE: As follows: The patient is a 28-year-old gentleman with type 1 diabetes who presented with acute episode of nausea, vomiting, dehydration with gastroenteritis picture. He did have an elevated white count and was sick coming in. He was aggressively resuscitated with fluids. IV antibiotics were started; however, cultures all have been negative. We think this is probably an acute viral gastroenteritis. He is feeling a lot better at this point, he is tolerating p.o. intake. He states that his belly feels a lot better. His sugars are better controlled as well too. His white count went from 19,[address] down to 9500, which is normal today, and his chemistry panel looks okay. His potassium is a little bit low, but that was due to his vomiting, and his gastroenteritis picture, but his clinical picture has greatly improved at this point. So, he feels good enough, he wants to go home today. I am going to send him home on his regular diabetic medications. Resume home diet and activity level. He is to follow up with his primary care physician, Dr. Hutchison, next week as scheduled, and I asked him to take a probiotic every day in the meantime. Isa Peter MD DR: GREGORY/latisha JOB# [id number]
--- NOTE | 2018-07-05 18:25 | ECHO ---
DATE OF SERVICE: 07/01/2018 ECHOCARDIOGRAM REPORT INDICATIONS: A 28-year-old male, staph bacteremia, rule out vegetation. ATTENDING PHYSICIAN: Dr. Gregg. FINDINGS: Mitral valve shows mild mitral regurgitation, 2 metres velocity. No vegetation was documented. Mild reversal of E to A ratio. Aorta normal. Normal aortic wall opening. Tricuspid valve with normal motion. Trivial tricuspid regurgitation. Right ventricle is normal. Right atrium is normal. Left atrium is normal. Left ventricle is normal in size, around 4.32 cm end diastolic dimension, 3.02 cm end-systolic dimension. Normal wall thickness, motion contraction, ejection fraction 61%. IVC normal. Pericardium normal. No evidence of any vegetation documented. At the present time, his index of suspicion is high with Staph aureus septicemia and transesophageal echo is the methodology to be used for assessing vegetation. Roma Vaughan MD DR: ANASTACIA/latisha JOB# [id number]
== END 2018-07-03 10:15 | disposition home or self-care (01) | DRG 177 ==
LOC: ER 00:23 → MS 03:38
PROVIDERS: ADMIT Internal Medicine; ATTEND Internal Medicine
DX: J69.0 Pneumonitis due to inhalation of food and vomit (principal); R65.11 Systemic inflammatory response syndrome (SIRS) of non-infectious origin with acute organ dysfunction; N17.9 Acute kidney failure, unspecified; D62 Acute posthemorrhagic anemia; K92.0 Hematemesis; E44.0 Moderate protein-calorie malnutrition; A08.4 Viral intestinal infection, unspecified; N18.1 Chronic kidney disease, stage 1; E10.22 Type 1 diabetes mellitus with diabetic chronic kidney disease; E10.65 Type 1 diabetes mellitus with hyperglycemia; E86.0 Dehydration; R09.02 Hypoxemia; F17.210 Nicotine dependence, cigarettes, uncomplicated; Z90.49 Acquired absence of other specified parts of digestive tract; Z79.899 Other long term (current) drug therapy; Z79.4 Long term (current) use of insulin; Z87.11 Personal history of peptic ulcer disease; Z68.26 Body mass index [BMI] 26.0-26.9, adult
CPT/HCPCS: 36415; 36600; 71046; 71250; 74019; 74176; 80048; 80053; 80202; 81000; 82803; 82948; 83690; 84100; 85025; 87040; 87086; 87186; 93307; 96361; 96374; 99285; C9113; J1815; J2405; J2543; J3480; J7030; J7050; J7120; J3370